=== PATIENT | female | born 1985 | race African-American/Black ===

== ENCOUNTER 2020-09-25 09:05 | Observation (INO) | payer OTHER ==
[~2020-09-25] VITALS: Ht 172.7 cm; Wt 94.3 kg
== END 2020-09-25 10:45 | disposition home or self-care (01) ==
LOC: SPU 09:05
PROVIDERS: ADMIT Obstetrics & Gynecology; ATTEND Obstetrics & Gynecology
DX: O36.8120 Decreased fetal movements, second trimester, not applicable or unspecified (principal); Z3A.25 25 weeks gestation of pregnancy
CPT/HCPCS: G0378